=== PATIENT | female | born 1955 | race Caucasian/White ===

== ENCOUNTER 2017-09-19 14:23 | Emergency (ER) | payer BC ==
[2017-09-19 14:39] VITALS: BP 143/74; BMI 24.5
[2017-09-19] MEDS ORDERED: NS 1000 ML 1,000 ML IV SCH (15:00)
[2017-09-19 15:18] LABS: BASOPHILS # (AUTO) 0.1 X10^3/uL (0.0-0.1); BASOPHILS % (AUTO) 0.9 % (0.2-1.0); EOSINOPHILS % (AUTO) 0.7 % (0.9-2.9); HEMATOCRIT 35.8 % (36.0-47.0); HEMOGLOBIN 12.6 g/dL (12.0-16.0); LYMPHOCYTES # (AUTO) 3.1 X10^3/uL (1.3-2.9); LYMPHOCYTES % (AUTO) 41.3 % (21.0-51.0); MEAN CORPUSCULAR HEMOGLOBIN 31.1 pg (27.0-34.0); MEAN CORPUSCULAR HGB CONC 35.1 g/dL (33.0-35.0); MEAN CORPUSCULAR VOLUME 88.7 fL (80.0-100.0); MEAN PLATELET VOLUME 8.4 fL (7.4-11.0); MONOCYTES # (AUTO) 0.6 x10^3/uL (0.3-0.8); MONOCYTES % (AUTO) 7.6 % (0.0-13.0); NEUTROPHILS # (AUTO) 3.8 x10^3/uL (2.2-4.8); NEUTROPHILS % (AUTO) 49.5 % (42.0-75.0); PLATELET COUNT 336 X10^3/uL (150.0-450.0); RED BLOOD COUNT 4.03 X10^6/uL (3.5-5.4); RED CELL DISTRIBUTION WIDTH 12.5 % (11.6-16.5); WHITE BLOOD COUNT 7.6 X10^3/uL (3.6-10.0)
[2017-09-19 15:27] LABS: ALANINE AMINOTRANSFERASE 23 Units/L (12-78); ALBUMIN 3.8 g/dL (3.4-5.0); ALKALINE PHOSPHATASE 31 Units/L (46-116); ASPARTATE AMINO TRANSFERASE 20 Units/L (15-37); BLOOD UREA NITROGEN 16 mg/dL (7-18); CALCIUM 9.3 mg/dL (8.5-10.1); CARBON DIOXIDE 27.7 mmol/L (21-32); CHLORIDE 99 mmol/L (98-107); CKMB % 4.3 % (<4); CREATINE KINASE 42 Units/L (26-192); CREATINE KINASE MB 1.8 ng/mL (0-4.0); CREATININE 1.13 mg/dL (0.55-1.02); SODIUM 137 mmol/L (136-145); TOTAL PROTEIN 7.5 g/dL (6.4-8.2); TROPONIN I < 0.02 ng/mL (0-1.5); eGFR BLACK RACES > 60 (>60); eGFR NON BLACK RACES 52 (>60)
--- NOTE | 2017-09-19 15:30 | CT ---
Head CT without contrast: Indication: Slurred speech, unable to move arms or legs. Comparison: Head CT dated November 03, 2012. Technique: Noncontrast CT imaging of the head was performed with continuous transverse reconstruction s and multiplanar reformations provided. Findings: There is no intracranial hemorrhage, mass effect, midline shift, or extra-axial fluid colle ction. No CT evidence of acute ischemia. There is mild hypodensity of the periventricular white matte r. Except for a small, chronic left cephalohematoma, thumb extracranial soft tissues are unremarkable . Skeletal structures are unremarkable. Paranasal sinuses and mastoid air cells are well developed an d well aerated. Impression: 1. No acute intracranial abnormality. 2. Mild chronic microvascular ischemic change of the periventricular white matter. Reported By:
[2017-09-19] MEDS ORDERED: NS 1000 ML 1,000 ML ONE (15:46)
[2017-09-19] MEDS ORDERED: K-LYTE EFFERVESCENT ONE (16:04)
[2017-09-19 16:21] LABS: BILIRUBIN,URINE NEGATIVE (NEGATIVE); BLOOD/HEMOGLOBIN,URINE NEGATIVE (NEGATIVE); GLUCOSE, URINE NEGATIVE (NEGATIVE); KETONES,URINE NEGATIVE (NEGATIVE); LEUKOCYTE ESTERASE ,URINE NEGATIVE (NEGATIVE); NITRITES,URINE NEGATIVE (NEGATIVE); PROTEIN,URINE NEGATIVE (NEGATIVE); UROBILINOGEN,URINE NORMAL (NORMAL)
--- NOTE | 2017-09-19 16:28 | DR.WEAKNES ---
HPI - Time Seen Time seen: 14:40 - Primary Care Physician Primary Care Physician: [email or web address] - Complaints Chief Complaint Doctors Comments: Patient presents with comlaint of weadknes and dizziness. She admits to contracture of lower extremities. She denies fever , vomiting or diarrhea. Chief Complaint:: pt c/o weakness for 2 days unable to get out of the car pt's fingers contraction inward - Source History Provided: Patient - Mode of Arrival Mode of Arrival: Wheelchair - Timing Onset of Chief Complaint: 09/17/17 Since onset, symptoms are:: Unchanged Symptom Onset: Unknown - Duration Duration: Since Onset (12 hours) Duration: Hours - Context Onset: Spontaneous Symptoms: Weakness, Difficulty walking History of: None Stroke Symptoms: None - Location Weakness Location: Normal - Associated Signs and Symptoms Associated Signs and Symptoms: None PMH - PMH Past Medical History: Yes Past Medical History: Hypertension, Hyperthyroidism Past Surgical History: Yes Surgical History: Hysterectomy - Family History History of Family Medical Conditions: Yes Family Medical History: Diabetes Mellitus, Cancer, [place], Coronary Artery Disease, Heart Failure, Hypertension - Social History Do you use any recreational Drugs:: No Lives With: Family Lives Where: Home - infectious screening In the last 2 months have you had wt loss of >10#?: NO Have you had fever, night sweats or hemotysis?: No Have you traveled outside the country in the last 6 months?: No Isolation: Standard ROS - Review of Systems Eyes: No Symptoms Reported ENTM: No Symptoms Reported Respiratoy: No Symptoms Reported Cardiovascular: No Symptoms Reported Gastrointestinal/Abdominal: No Symptoms Reported Genitourinary: No Symptoms Reported Neurological: Tingling (of extremities), Weakness, Dizziness Musculoskeletal: Other (contracture of lower extremities) Integumentary: negative: No Symptoms Reported, See HPI, Change in Color, Change in Hair/Nails, Dryness, Lesions, Lumps, Rash, Itching, Wound, Bruises, Juandice , Other Hematologic/Lymphatic: No Symptoms Reported Endocrine: No Symptoms Reported Psychiatric: No Symptoms Reported All Other Systems: Reviewed and Negative PE - Vital Signs Vitals: Temperature 98.6 F Pulse Rate 99 Respiratory Rate 22 Blood Pressure 143/74 O2 Sat by Pulse Oximetry 100 - General Limitations: No Limitations General Appearance: Alert, In No Apparent Distress - Head Head Exam: Normal Inspection Head Exam Physical: Laceration - Eyes Eye exam: Normal Appearance, PERRL, EOMI Eyelids: Normal Inspection: Bilateral Pupils: Regular, Round: Bilateral Sclera/Conjunctival: Normal Inspection: Bilateral Anterior Chamber: Normal Inspection: Bilateral - ENT ENT Exam: Normal Exam, Normal Oropharynx Mouth Exam: Normal Inspection Throat Exam: Normal Inspection, Tonsillar Erythema - Neck Neck Exam: Normal Inspection, Full ROM - Chest Chest Inspection: Normal Inspection - Respiratory Respiratory Exam: Normal Lung Sounds Bilat Respiratory Exam: Bilateral Clear to Auscultation - Cardiovascular Cardiovascular Exam: Systolic Murmur - Abdominal Exam Abdominal Exam: Normal Inspection, Normal Bowel Sounds Abdominal Tenderness: negative: RUQ, RLQ, LUQ, LLQ, Epigastrium, Suprapubic, Diffuse, Mild, Moderate, Severe, Other - Extremities Extremities Exam: Other. negative: Tenderness (eversion of feet medially), Edema, Joint Swelling - Back Back Exam: Normal Inspection - Neurologic Neurological Exam: Alert, Oriented X3, CN II-XII Intact Patient Oriented To: Person Cranial Nerve Exam: EOM Function (II, III, IV, ): Normal Cerebellar Function: Finger to Nose: Normal Cerebellar Function: Normal Gait Motor Strength - LUE: 3/5 Motor Strength - RUE: 3/5 Motor Strength - LLE: 3/5 Sensory Exam Lower Extremity: Light Touch: Normal DTR: achilles tendon (L): 2+ - Psychiatric Psychiatric Exam: Normal Affect, Normal Mood - Skin Skin Exam: Warm, Dry, Intact ROR - Labs Reviewed Result Diagrams: 09/19/17 14:55 09/19/17 14:55 Laboratory: WBC 7.6 X10^3/uL (3.6-10.0) 09/19/17 14:55 RBC 4.03 X10^6/uL (3.5-5.4) 09/19/17 14:55 Hgb 12.6 g/dL (12.0-16.0) 09/19/17 14:55 Hct 35.8 % (36.0-47.0) L 09/19/17 14:55 MCV 88.7 fL (80.0-100.0) 09/19/17 14:55 MCH 31.1 pg (27.0-34.0) 09/19/17 14:55 MCHC 35.1 g/dL (33.0-35.0) H 09/19/17 14:55 RDW 12.5 % (11.6-16.5) 09/19/17 14:55 Plt Count 336 X10^3/uL (150.0-450.0) 09/19/17 14:55 MPV 8.4 fL (7.4-11.0) 09/19/17 14:55 Neut % 49.5 % (42.0-75.0) 09/19/17 14:55 Lymph % 41.3 % (21.0-51.0) 09/19/17 14:55 [place] % 7.6 % (0.0-13.0) 09/19/17 14:55 Eos % 0.7 % (0.9-2.9) L 09/19/17 14:55 Baso % 0.9 % (0.2-1.0) 09/19/17 14:55 Neut # 3.8 x10^3/uL (2.2-4.8) 09/19/17 14:55 Lymph # 3.1 X10^3/uL (1.3-2.9) H 09/19/17 14:55 [place] # 0.6 x10^3/uL (0.3-0.8) 09/19/17 14:55 Eos # 0.0 x10^3/uL (0.0-0.2) 09/19/17 14:55 Baso # 0.1 X10^3/uL (0.0-0.1) 09/19/17 14:55 Absolute Nucleated RBC 0.1 /100WBC 09/19/17 14:55 Sodium 137 mmol/L (136-145) 09/19/17 14:55 Corrected Sodium TNP 09/19/17 14:55 Potassium 2.5 mmol/L (3.5-5.1) L* 09/19/17 14:55 Chloride 99 mmol/L (98-107) 09/19/17 14:55 Carbon Dioxide 27.7 mmol/L (21-32) 09/19/17 14:55 BUN 16 mg/dL (7-18) 09/19/17 14:55 Creatinine 1.13 mg/dL (0.55-1.02) H 09/19/17 14:55 Est GFR (MDRD) Af Amer > 60 (>60) 09/19/17 14:55 Est GFR (MDRD) Non-Af 52 (>60) L 09/19/17 14:55 Glucose 97 mg/dL (65-99) 09/19/17 14:55 Calcium 9.3 mg/dL (8.5-10.1) 09/19/17 14:55 Corrected Calcium TNP 09/19/17 14:55 Total Bilirubin 0.20 mg/dL (0.2-1.0) 09/19/17 14:55 AST 20 Units/L (15-37) 09/19/17 14:55 ALT 23 Units/L (12-78) 09/19/17 14:55 Alkaline Phosphatase 31 Units/L (46-116) L 09/19/17 14:55 Creatine Kinase 42 Units/L (26-192) 09/19/17 14:55 CK-MB (CK-2) 1.8 ng/mL (0-4.0) 09/19/17 14:55 CK/CKMB % Calc 4.3 % (<4) 09/19/17 14:55 Troponin I < 0.02 ng/mL (0-1.5) 09/19/17 14:55 Total Protein 7.5 g/dL (6.4-8.2) 09/19/17 14:55 Albumin 3.8 g/dL (3.4-5.0) 09/19/17 14:55 Globulin 3.7 g/dL (2.5-4.5) 09/19/17 14:55 Albumin/Globulin Ratio 1.0 Ratio (1.1-2.1) L 09/19/17 14:55 Specimen Type Clean catch urine 09/19/17 16:06 Urine Color Pale yellow (YELLOW) 09/19/17 16:06 Urine Appearance Clear (CLEAR) 09/19/17 16:06 Urine pH 8.0 (5.0 - 8.0) 09/19/17 16:06 Ur Specific [place] 1.015 (1.000-1.030) 09/19/17 16:06 Urine Protein Negative (NEGATIVE) 09/19/17 16:06 Urine Glucose (UA) Negative (NEGATIVE) 09/19/17 16:06 Urine Ketones Negative (NEGATIVE) 09/19/17 16:06 Urine Occult Blood Negative (NEGATIVE) 09/19/17 16:06 Urine Nitrite Negative (NEGATIVE) 09/19/17 16:06 Urine Bilirubin Negative (NEGATIVE) 09/19/17 16:06 Urine Urobilinogen Normal (NORMAL) 09/19/17 16:06 Ur Leukocyte Esterase Negative (NEGATIVE) 09/19/17 16:06 Urine RBC Negative /HPF (NEGATIVE) 09/19/17 16:06 Urine WBC Rare /HPF (NEGATIVE) 09/19/17 16:06 Ur Squamous Epith Cells Rare /HPF (NEGATIVE) 09/19/17 16:06 Urine Bacteria Negative /HPF (NEGATIVE) 09/19/17 16:06 Ur Culture Indicated? No/not indicated 09/19/17 16:06 - XRAY XRAY Interpreted by: Radiologist (CT Brain: No acute intracranial abnormality) - Diagnosis Discharge Problem: Hypokalemia - Discharge Plan Condition: Stable - Follow ups/Referrals Follow ups/Referrals: BHAVESH MOSS [Primary Care Provider] - 3 days - Instructions
[2017-09-19 16:30] LABS: APPEARANCE,URINE CLEAR (CLEAR); COLOR,URINE PALE YELLOW (YELLOW); RBC,URINE NEGATIVE /HPF (NEGATIVE)
[2017-09-19 16:31] LABS: BACTERIA,URINE NEGATIVE /HPF (NEGATIVE); SQUAMOUS EPITHELIAL CELL,UR RARE /HPF (NEGATIVE)
[2017-09-20] MEDS ORDERED: K-LYTE EFFERVESCENT PO SCH (09:00)
== END 2017-09-19 17:39 | disposition home or self-care (01) ==
LOC: ER 14:23
DX: E87.6 Hypokalemia (principal); R42 Dizziness and giddiness
CPT/HCPCS: 36415; 70450; 80053; 81001; 82550; 82553; 84484; 85025; 93005; 93010; 96365; 96374; 99283; A4222

== ENCOUNTER 2018-08-12 23:17 | Observation (INO) ==
[2018-08-12] MEDS ORDERED: NITROSTAT SL ONE (23:42)
[2018-08-12] MEDS ORDERED: NITROSTAT SL PRN (23:46)
[2018-08-12 23:59] VITALS: BMI 25.6
[2018-08-13 00:05] LABS: BASOPHILS % (AUTO) 0.3 % (0.2-1.0); EOSINOPHILS % (AUTO) 0.4 % (0.9-2.9); HEMATOCRIT 33.2 % (36.0-47.0); HEMOGLOBIN 11.4 g/dL (12.0-16.0); LYMPHOCYTES # (AUTO) 1.5 X10^3/uL (1.3-2.9); LYMPHOCYTES % (AUTO) 33.7 % (21.0-51.0); MEAN CORPUSCULAR HGB CONC 34.5 g/dL (33.0-35.0); MEAN CORPUSCULAR VOLUME 89.8 fL (80.0-100.0); MEAN PLATELET VOLUME 8.3 fL (7.4-11.0); MONOCYTES # (AUTO) 0 x10^3/uL (0.3-0.8); MONOCYTES % (AUTO) 0.7 % (0.0-13.0); NEUTROPHILS # (AUTO) 2.9 x10^3/uL (2.2-4.8); NEUTROPHILS % (AUTO) 64.9 % (42.0-75.0); PLATELET COUNT 311 X10^3/uL (150.0-450.0); RED BLOOD COUNT 3.69 X10^6/uL (3.5-5.4); RED CELL DISTRIBUTION WIDTH 13.4 % (11.6-16.5); WHITE BLOOD COUNT 4.4 X10^3/uL (3.6-10.0)
[2018-08-13 00:14] LABS: ALANINE AMINOTRANSFERASE 30 Units/L (12-78); ALBUMIN 3.5 g/dL (3.4-5.0); ALKALINE PHOSPHATASE 42 Units/L (46-116); ASPARTATE AMINO TRANSFERASE 17 Units/L (15-37); BLOOD UREA NITROGEN 15 mg/dL (7-18); CALCIUM 9.1 mg/dL (8.5-10.1); CARBON DIOXIDE 29.4 mmol/L (21-32); CHLORIDE 100 mmol/L (98-107); COR NA(FOR HYPERGLY) 140 mmol/L (136-145); SODIUM 140 mmol/L (136-145); TOTAL PROTEIN 7.3 g/dL (6.4-8.2); eGFR NON BLACK RACES 48 (>60)
[2018-08-13 00:26] LABS: CKMB % 1.5 % (<4); CREATINE KINASE 67 Units/L (26-192); CREATINE KINASE MB < 1.0 ng/mL (0-4.0); TROPONIN I < 0.02 ng/mL (0-1.5)
[2018-08-13] MEDS ORDERED: NS 1000 ML 1,000 ML ONE (00:27)
--- NOTE | 2018-08-13 00:36 | DR.CP ---
HPI Time Seen Time Seen by Provider: 08/13/18 00:06 PCP Primary Care Physician: MARGARET MOSS Complaint Chief Complaint:: STATES HAD STENT PLACED IN LEFT LAD ON 07/21 AND EVER SINCE THEN HAS BEEN SOB ON THE [place], SWITCHED TODAY TO PLAVIX AND TOOK LOADING DOSE TONIGHT AND HAS FELT LEFT ARM PAIN AND JAW PAIN SINCE THEN , PT VERY ANXIOUS IN TRIAGE. Self Treatment fo Chief Complaint: N/A Source History Provided: Patient Mode of Arrival Mode of Arrival: Ambulatory Timing Onset of Chief Complaint: 08/12/18 Location Chest Pain Radiation Location: Left Jaw and Left Arm Associated Signs and Symptoms Associated Signs and Symptoms: Shortness of Breath PMH PMH Past Medical History: Yes Past Medical History: Hypertension and Hyperthyroidism Past Surgical History: Yes Surgical History: Hysterectomy Past Surgical History Comment: STENT LEFT LAD 07/21/18 Family History History of Family Medical Conditions: Yes Family Medical History: Diabetes Mellitus, Cancer, [place], Coronary Artery Disease, Heart Failure and Hypertension Social History Does patient currently use any type of tobacco product: No Have you used tobacco products in the last 12 months: No Type of Tobacco Use: None Does any household member use tobacco: No Alcohol Use: None Do you use any recreational Drugs:: No Lives With: Spouse Lives Where: Home infectious screening In the last 2 months have you had wt loss of >10#?: NO Have you had fever, night sweats or hemotysis?: No Have you traveled outside the country in the last 6 months?: No Isolation: Standard PE Vitals Vitals: Temperature 98.3 F Pulse Rate [Apical] 76 Pulse Rate 101 Respiratory Rate 18 Blood Pressure [Right Arm] 123/61 Blood Pressure [Left Arm] 110/64 Blood Pressure 143/75 O2 Sat by Pulse Oximetry 100 General Limitations: No Limitations General Appearance: Alert and Anxious Head Head Exam: Normal Inspection, Atraumatic and Normocephalic Eyes Eye exam: Normal Appearance, PERRL and EOMI ENT ENT Exam: Normal Exam and Normal Oropharynx Chest Chest Inspection: Normal Inspection and Symmetric Chest Wall Rise Respiratory Respiratory Exam: Normal Lung Sounds Bilat and Accessory Muscle Use Respiratory Exam: Bilateral: Clear to Auscultation Cardiovascular Cardiovascular Exam: Regular Rate and Normal Rhythm Pulse: Normal Abdominal Exam Abdominal Exam: Normal Inspection, Normal Bowel Sounds and Soft Abdominal Tenderness: RUQ Extremities Extremities Exam: Normal Inspection and Full ROM Back Back Exam: Normal Inspection and Full ROM Neurologic Neurological Exam: Alert, Oriented X3 and CN II-XII Intact Psychiatric Psychiatric Exam: Normal Affect, Normal Mood and Anxious Skin Skin Exam: Warm, Dry, Intact and Normal Color COURSE Treatment Treatment: NTG SL pain level decreased from 8 to 4. Reevaluation 1st: Improved Consultation Called: 01:15 Consultation Comments: Dr. Sainz contacted; he agreed to admit for observation-chest pain protocol ROR Labs Reviewed Laboratory Results Reviewed?: Yes Result Diagrams: 08/13/18 05:23 08/13/18 05:23 Laboratory: WBC 10.4 X10^3/uL (3.6-10.0) H 08/13/18 05:23 RBC 3.86 X10^6/uL (3.5-5.4) 08/13/18 05:23 Hgb 12.2 g/dL (12.0-16.0) 08/13/18 05:23 Hct 34.7 % (36.0-47.0) L 08/13/18 05:23 MCV 89.7 fL (80.0-100.0) 08/13/18 05:23 MCH 31.5 pg (27.0-34.0) 08/13/18 05:23 MCHC 35.1 g/dL (33.0-35.0) H 08/13/18 05:23 RDW 13.2 % (11.6-16.5) 08/13/18 05:23 Plt Count 280 X10^3/uL (150.0-450.0) 08/13/18 05:23 Plt Count Comment Adequate (ADEQUATE) 08/13/18 05:23 MPV 7.8 fL (7.4-11.0) 08/13/18 05:23 Neut % (Auto) 90.3 % (42.0-75.0) H 08/13/18 05:23 Lymph % (Auto) 6.2 % (21.0-51.0) L 08/13/18 05:23 [place] % (Auto) 2.8 % (0.0-13.0) 08/13/18 05:23 Eos % (Auto) 0.3 % (0.9-2.9) L 08/13/18 05:23 Baso % (Auto) 0.4 % (0.2-1.0) 08/13/18 05:23 Neut # (Auto) 9.4 x10^3/uL (2.2-4.8) H 08/13/18 05:23 Lymph # (Auto) 0.6 X10^3/uL (1.3-2.9) L 08/13/18 05:23 [place] # (Auto) 0.3 x10^3/uL (0.3-0.8) 08/13/18 05:23 Eos # (Auto) 0.0 x10^3/uL (0.0-0.2) 08/13/18 05:23 Baso # (Auto) 0.0 X10^3/uL (0.0-0.1) 08/13/18 05:23 Absolute Nucleated RBC 0.0 /100WBC 08/13/18 05:23 Total Counted 100 08/13/18 05:23 Neutrophils % (Manual) 79 % (39-76) H 08/13/18 05:23 Band Neutrophils % 8 % (0-10) 08/13/18 05:23 Lymphocytes % (Manual) 10 % (13-43) L 08/13/18 05:23 Monocytes % (Manual) 1 % (4-9) L 08/13/18 05:23 Eosinophils % (Manual) 2 % (0-6) 08/13/18 05:23 Plt Morphology Comment Normal (NORMAL) 08/13/18 05:23 RBC Morphology Normal (NORMAL) 08/13/18 05:23 INR Target Range - 08/12/18 23:50 INR 0.93 (0.8-1.3) 08/12/18 23:50 APTT 28.4 SECONDS (22.9-36.5) 08/12/18 23:50 PTT Comment - 08/12/18 23:50 D-Dimer 499 ng/mL (0-400) H* 08/12/18 23:50 Sodium 137 mmol/L (136-145) 08/13/18 05:23 Corrected Sodium TNP 08/13/18 05:23 Potassium 3.9 mmol/L (3.5-5.1) 08/13/18 05:23 Chloride 101 mmol/L (98-107) 08/13/18 05:23 Carbon Dioxide 27.7 mmol/L (21-32) 08/13/18 05:23 BUN 12 mg/dL (7-18) 08/13/18 05:23 Creatinine 1.09 mg/dL (0.55-1.02) H 08/13/18 05:23 Est GFR (MDRD) Af Amer > 60 (>60) 08/13/18 05:23 Est GFR (MDRD) Non-Af 54 (>60) L 08/13/18 05:23 Glucose 105 mg/dL (65-99) H 08/13/18 05:23 Calcium 8.7 mg/dL (8.5-10.1) 08/13/18 05:23 Corrected Calcium TNP 08/13/18 05:23 Total Bilirubin 0.40 mg/dL (0.2-1.0) 08/13/18 05:23 AST 32 Units/L (15-37) 08/13/18 05:23 ALT 36 Units/L (12-78) 08/13/18 05:23 Alkaline Phosphatase 42 Units/L (46-116) L 08/13/18 05:23 Creatine Kinase 41 Units/L (26-192) 08/13/18 11:31 CK-MB (CK-2) < 1.0 ng/mL (0-4.0) 08/13/18 11:31 CK/CKMB % Calc 2.4 % (<4) 08/13/18 11:31 Troponin I < 0.02 ng/mL (0-1.5) 08/13/18 11:31 Total Protein 7.1 g/dL (6.4-8.2) 08/13/18 05:23 Albumin 3.4 g/dL (3.4-5.0) 08/13/18 05:23 Globulin 3.7 g/dL (2.5-4.5) 08/13/18 05:23 Albumin/Globulin Ratio 0.9 Ratio (1.1-2.1) L 08/13/18 05:23 Free T4 1.44 ng/dL (0.76-1.46) 08/13/18 11:31 TSH 3rd Generation 0.906 uIU/mL (0.358-3.74) 08/13/18 11:31 XRAY XRAY Interpreted by: Self XRAY Findings: Chest: No acute cardiopulmonary disease EKG Rate: 93 Rhythm: PACs Diagnosis Discharge Problem: Hypokalemia, Chest pain at rest, Status post myocardial infarction Instructions Instructions: Metoprolol tablets Hypokalemia Nonspecific Chest Pain Potassium Content of Foods Forms: Patient Portal
[2018-08-13] MEDS ORDERED: K-LYTE EFFERVESCENT PO ONE (00:58)
[2018-08-13] MEDS ORDERED: NS 1000 ML 1,000 ML IV SCH (01:00)
[2018-08-13] MEDS ORDERED: K-LYTE EFFERVESCENT ONE (01:19)
[2018-08-13] MEDS ORDERED: NS 100 ML IV 100 ML IV ONE (01:33)
[2018-08-13] MEDS ORDERED: MORPHINE SULFATE INJ 4 MG IVP ONE (02:28)
[2018-08-13] MEDS ORDERED: FLEXERIL TAB 10 MG PO PRN (02:42)
[2018-08-13] MEDS ORDERED: LISDEXAMFETAMINE 50 MG PO PRN (02:42)
[2018-08-13] MEDS ORDERED: PATIENT'S HOME MEDICATION (Hydrocodone-Acetaminophen [Norco] 1 TAB) PO PRN (02:42)
[2018-08-13 05:41] LABS: BASOPHILS % (AUTO) 0.4 % (0.2-1.0); EOSINOPHILS % (AUTO) 0.3 % (0.9-2.9); HEMATOCRIT 34.7 % (36.0-47.0); HEMOGLOBIN 12.2 g/dL (12.0-16.0); LYMPHOCYTES # (AUTO) 0.6 X10^3/uL (1.3-2.9); LYMPHOCYTES % (AUTO) 6.2 % (21.0-51.0); MEAN CORPUSCULAR HEMOGLOBIN 31.5 pg (27.0-34.0); MEAN CORPUSCULAR HGB CONC 35.1 g/dL (33.0-35.0); MEAN CORPUSCULAR VOLUME 89.7 fL (80.0-100.0); MEAN PLATELET VOLUME 7.8 fL (7.4-11.0); MONOCYTES # (AUTO) 0.3 x10^3/uL (0.3-0.8); MONOCYTES % (AUTO) 2.8 % (0.0-13.0); NEUTROPHILS # (AUTO) 9.4 x10^3/uL (2.2-4.8); NEUTROPHILS % (AUTO) 90.3 % (42.0-75.0); PLATELET COUNT 280 X10^3/uL (150.0-450.0); RED BLOOD COUNT 3.86 X10^6/uL (3.5-5.4); RED CELL DISTRIBUTION WIDTH 13.2 % (11.6-16.5); WHITE BLOOD COUNT 10.4 X10^3/uL (3.6-10.0)
[2018-08-13 05:52] LABS: ALANINE AMINOTRANSFERASE 36 Units/L (12-78); ALBUMIN 3.4 g/dL (3.4-5.0); ALKALINE PHOSPHATASE 42 Units/L (46-116); ASPARTATE AMINO TRANSFERASE 32 Units/L (15-37); BLOOD UREA NITROGEN 12 mg/dL (7-18); CALCIUM 8.7 mg/dL (8.5-10.1); CARBON DIOXIDE 27.7 mmol/L (21-32); CHLORIDE 101 mmol/L (98-107); CREATININE 1.09 mg/dL (0.55-1.02); SODIUM 137 mmol/L (136-145); TOTAL PROTEIN 7.1 g/dL (6.4-8.2); eGFR NON BLACK RACES 54 (>60)
[2018-08-13 05:59] LABS: BAND NEUTROPHILS % 8 % (0-10)
[2018-08-13 06:00] LABS: PLATELET MORPHOLOGY COMMENT NORMAL (NORMAL)
[2018-08-13] MEDS ORDERED: MOTRIN TAB 600 MG PO SCH (06:00)
[2018-08-13 06:05] LABS: CKMB % 2.2 % (<4); CREATINE KINASE 45 Units/L (26-192); CREATINE KINASE MB < 1.0 ng/mL (0-4.0); TROPONIN I < 0.02 ng/mL (0-1.5)
[2018-08-13] MEDS ORDERED: LOPRESSOR TAB 25 MG PO SCH (09:00)
[2018-08-13] MEDS ORDERED: HYDROCHLOROTHIAZIDE 25 MG TAB PO SCH (09:00)
[2018-08-13] MEDS ORDERED: PLAVIX PO SCH (09:00)
[2018-08-13] MEDS ORDERED: HYDROCHLOROTHIAZIDE 50 MG PO SCH (09:00)
[2018-08-13] MEDS ORDERED: K-DUR TAB 20 MEQ PO SCH (09:00)
[2018-08-13] MEDS ORDERED: THYROID PO SCH (09:00)
[2018-08-13] MEDS ORDERED: SYNTHROID 100 mcg TAB PO SCH (09:00)
[2018-08-13 12:02] LABS: CKMB % 2.4 % (<4); CREATINE KINASE 41 Units/L (26-192); CREATINE KINASE MB < 1.0 ng/mL (0-4.0); TROPONIN I < 0.02 ng/mL (0-1.5)
[2018-08-13 14:23] LABS: FREE T4 (FREE THYROXINE) 1.44 ng/dL (0.76-1.46); TSH (3RD GENERATION) 0.906 uIU/mL (0.358-3.74)
[2018-08-13 16:14] VITALS: BP 123/61
--- NOTE | 2018-08-21 06:24 | DR.CARTERS ---
Short Stay Summary - Short Stay Summary for: Short Stay Summary for Date of:: 08/13/18 - Admission Date Date of Admission: 08/13/18 - Discharge Date Discharge Date: 08/13/18 - Admission Diagnoses (1) Dyspnea Status: Acute (2) Chest pain at rest Status: Acute (3) Status post myocardial infarction Status: Acute - Hospital Course Hospital Course: STATES HAD STENT PLACED IN LEFT LAD ON 07/21 AND EVER SINCE THEN HAS BEEN SOB ON THE [place], SWITCHED TODAY TO PLAVIX AND TOOK LOADING DOSE TONIGHT AND HAS FELT LEFT ARM PAIN AND JAW PAIN SINCE THEN , PT VERY ANXIOUS IN TRIAGE. PATIENT WAS ADMITTED FOR FURTHER EVALUATION. CARDIAC ENZYMES AND EKGS WERE MONITORED WITH NO ACUTE CHANGES. PATIENT HAD MILD ELEVATION OF D DIMER AND CTA CHEST WITH NO EVIDENCE OF PE. PATIENT'S SYMPTOMS IMPROVED AND WAS DISCHARGED HOME TO BE FOLLOWED ON OP BASIS. - Discharge Medications Discharge Medications: Home Medication List clopidogrel 75 mg PO DAILY 08/13/18 [History] hydrochlorothiazide 50 mg PO Q OTHER DAY 08/13/18 [History] levothyroxine 100 mcg PO DAILY 08/13/18 [History] metoprolol tartrate [Lopressor] 12.5 mg PO BID #60 tab 08/13/18 [Rx] potassium chloride 10 meq PO Q OTHER DAY 08/13/18 [History] Prescriptions: metoprolol tartrate [Lopressor] LEONEL SAINZ - Discharge Plan Disposition: 01 HOME, SELF-CARE Condition: Stable Prescriptions: metoprolol tartrate [Lopressor] 12.5 mg PO BID #60 tab - Follow up/Referrals Follow up/Referrals: LEONEL SAINZ [Primary Care Provider] - 1 WEEK - Instructions Instructions: Metoprolol tablets, Hypokalemia, Nonspecific Chest Pain, Potassium Content of Foods Additional Instructions: Prescription for Lopressor 12.5mg tablets take one by mouth twice a day sent to [facility]. Continue other home medications as prescribed. Diet as tolerated. Activity as tolerated. Follow up with Dr. Sainz in 1 week. If chest pain reoccurs see your primary care physician immediately or return to the nearest emergency room. Forms: Patient Portal
== END 2018-08-13 17:00 | disposition home or self-care (01) ==
LOC: ER 23:18 → OBS 23:18
PROVIDERS: ADMIT Internal Medicine; ATTEND Internal Medicine
DX: I25.2 Old myocardial infarction; I10 Essential (primary) hypertension; R51 Headache; R94.4 Abnormal results of kidney function studies; R68.84 Jaw pain; R06.02 Shortness of breath; E05.80 Other thyrotoxicosis without thyrotoxic crisis or storm; Z98.890 Other specified postprocedural states; M79.602 Pain in left arm; R79.1 Abnormal coagulation profile; R07.89 Other chest pain; Z95.5 Presence of coronary angioplasty implant and graft
CPT/HCPCS: 36415; 70450; 71275; 72040; 80053; 82550; 82553; 84439; 84443; 84484; 85025; 85378; 85610; 85730; 93005; 93010; 96365; 96367; 99284; A4222; G0378; J7030; J7050; J8499